=== PATIENT | female | born 1970 | race Caucasian/White ===

== ENCOUNTER → 2017-10-23 | Outpatient (CLI) | payer MEDICAID ==
--- NOTE | 2017-10-23 11:44 | MR ---
EXAMINATION TYPE: MR iac wo/w con DATE OF EXAM: 10/23/2017 11:26 AM COMPARISON: NONE HISTORY: Hearing loss TECHNIQUE: Multiplanar and multispin-echo imaging of the brain was performed both before and after the administr ation of contrast. High-resolution images are obtained of the internal auditory canals performed uti lizing 7 mL intravenous Gadavist contrast. The ventricles, basal cisterns and sulci overlying the cerebral convexities are within normal limits. There is no evidence for midline shift or mass effect. Acute intracranial hemorrhage or extra-axial collection is not evident. There are no abnormal areas of increased or decreased signal intensity within the brain parenchyma. High-resolution imaging of the internal auditory canals fails demonstrate evidence for an enhancing a coustic schwannoma or cerebellopontine cistern angle mass. Following contrast administration, there is no evidence for pathologic enhancement or enhancing mass. The mastoid air cells are well-aerated. Small mucous retention cyst right maxillary sinus. IMPRESSION: 1. No evidence of acoustic schwannoma or cerebellopontine angle mass.
== END | disposition home or self-care (01) ==
LOC: RADMRIMAIN 10:41
PROVIDERS: ATTEND Otolaryngology
DX: R42 Dizziness and giddiness (principal); H93.12 Tinnitus, left ear; H91.92 Unspecified hearing loss, left ear; H93.3X9 Disorders of unspecified acoustic nerve
CPT/HCPCS: 70553; A9581

== ENCOUNTER 2018-12-18 14:07 | Emergency (ER) | payer MEDICAID ==
[2018-12-18 14:32] VITALS: RESP 18
[2018-12-18] MEDS ORDERED: APIXABAN 5 MG TAB PO STA (15:12)
--- NOTE | 2018-12-18 15:16 | ED ---
Recheck HPI - General Chief Complaint: Recheck/Abnormal Lab/Rx Stated Complaint: DVT Time Seen by Provider: 12/18/18 14:33 Source: patient, RN notes reviewed Mode of arrival: ambulatory Limitations: no limitations - History of Present Illness Initial Comments: 48-year-old female presents emergency Department with chief complaint of right leg swelling and discomfort. Patient had some discomfort over the last week in which she felt was related to riding her bike. Patient states she does not show [employer] horse. Patient that she noticed increased swelling to her leg. It did improve with elevation though she had ultrasound which was positive for DVT. She denies chest pain, shortness breath, palpitations, dizziness. She denies any injury no long distance traveling. She states that she has no other complaints at this time. - Related Data Home Medications Medication Instructions Recorded Confirmed Azelastine HCl [Astepro] 1 spray EA NOSTRIL DAILY 12/18/18 12/18/18 acetaZOLAMIDE [Diamox Sequels] 500 mg PO BID 12/18/18 12/18/18 predniSONE 20 mg PO DIRECTED 12/18/18 12/18/18 Previous Rx's Medication Instructions Recorded Apixaban [Eliquis] 0 mg PO DIRECTED #74 tablet 12/18/18 Allergies Allergy/AdvReac Type Severity Reaction Status Date / Time grass pollen-perennial rye, Allergy Intermediate Unknown Verified 12/18/18 14:49 standar tape AdvReac Rash/Hives Uncoded 08/04/15 09:53 Review of Systems ROS Statement: Those systems with pertinent positive or pertinent negative responses have been documented in the HPI. ROS Other: All systems not noted in ROS Statement are negative. Past Medical History Past Medical History: Atrial Flutter, GERD/Reflux Additional Past Medical History / Comment(s): PAST HX OF ATRIAL FLUTTER, CARDIAC TESTING NEGATIVE, HAS NOT HAD IN MONTHS, ocular cysts bilaterally, Meniers disease History of Any Multi-Drug Resistant Organisms: None Reported Past Surgical History: Bariatric Surgery Additional Past Surgical History / Comment(s): EXPLORATORY LAPAROSCOPIC ABDOMINAL SX, sleeve gastrectomy 2014 Past Anesthesia/Blood Transfusion Reactions: Motion Sickness, Postoperative Nausea & Vomiting (PONV) Additional Past Anesthesia/Blood Transfusion Reaction / Comment(s): STATES SOME NAUSEA Past Psychological History: No Psychological Hx Reported Smoking Status: Never smoker Past Alcohol Use History: None Reported Past Drug Use History: None Reported - Past Family History Father Family Medical History: Cancer, Diabetes Mellitus Additional Family Medical History / Comment(s): SKIN CA General Exam Limitations: no limitations General appearance: alert, in no apparent distress Head exam: Present: atraumatic, normocephalic, normal inspection Neck exam: Present: normal inspection, full ROM. Absent: tenderness, meningismus, lymphadenopathy Respiratory exam: Present: normal lung sounds bilaterally. Absent: respiratory distress, wheezes, rales, rhonchi, stridor Cardiovascular Exam: Present: regular rate, normal rhythm, normal heart sounds. Absent: systolic murmur, diastolic murmur, rubs, gallop, clicks Extremities exam: Present: other (Moderate leg swelling, no tenderness to distal portion of there is mild tenderness the popliteal region) Neurological exam: Present: alert, oriented X3, CN II-XII intact, reflexes normal. Absent: motor sensory deficit Skin exam: Present: warm, dry, intact, normal color. Absent: rash Course Vital Signs 12/18/18 14:27 Temperature 99.2 F Pulse Rate 81 Respiratory 18 Rate Blood Pressure 116/77 O2 Sat by Pulse 100 Oximetry Medical Decision Making - Medical Decision Making 48-year-old female presented for right leg DVT. Patient was started on Eliquis she has no chest pain or shortness breath is no concern for PE at this time vitals are stable she has equal pulses. Patient will follow palpation for further workup patient was given prescription for Eliquis for one month. Disposition Clinical Impression: Right leg DVT Disposition: HOME SELF-CARE Condition: Stable Instructions (If sedation given, give patient instructions): Deep Vein Thrombosis (ED) Additional Instructions: Please return to the Emergency Department if symptoms worsen or any other concerns. Prescriptions: Apixaban [Eliquis] 0 mg PO DIRECTED #74 tablet Is patient prescribed a controlled substance at d/c from ED?: No Referrals: Ming Valenzuela MD [Primary Care Provider] - 1-2 days Time of Disposition: 15:16
[2018-12-18 15:46] VITALS: BP 109/57; PULSE 86; TEMP 98
== END 2018-12-18 15:46 | disposition home or self-care (01) ==
LOC: EEVIPCON 14:07 → EC 14:07
DX: I82.401 Acute embolism and thrombosis of unspecified deep veins of right lower extremity (principal); K21.9 Gastro-esophageal reflux disease without esophagitis; Z79.52 Long term (current) use of systemic steroids; Z79.899 Other long term (current) drug therapy; Z91.048 Other nonmedicinal substance allergy status; Z98.84 Bariatric surgery status
CPT/HCPCS: 99283

== ENCOUNTER → 2018-12-18 | Outpatient (CLI) | payer MEDICAID ==
[2018-12-18 13:11] LABS: Anisocytosis Slight; Basophils % (A) 0 %; Eosinophils % (A) 0 %; HCT 34.8 % (34.0-46.0); Hypochromasia Marked; Lymphocytes % (A) 9 %; MCH 20.9 pg (25.0-35.0); MCHC 28.7 g/dL (31.0-37.0); MCV 72.7 fL (80.0-100.0); Mean Platelet Volume 7.1; Microcytosis Moderate; Monocytes # (A) 0.5 k/uL (0-1.0); Monocytes % (A) 5 %; Neutrophils # (A) 9.4 k/uL (1.3-7.7); Neutrophils % (A) 85 %; Platelet Count 280 k/uL (150-450); Poikilocytosis Slight; RBC 4.78 m/uL (3.80-5.40); RDW 17.8 % (11.5-15.5); WBC 11.1 k/uL (3.8-10.6)
[2018-12-18 13:24] LABS: INR 0.9 (<1.2); Prothrombin Time 9.7 sec (9.0-12.0)
[2018-12-18 13:29] LABS: ALT 17 U/L (9-52); AST 21 U/L (14-36); African American GFR (CKD) >90 (>60 ml/min/1.73 sqM); Alkaline Phosphatase 61 U/L (38-126); Anion Gap 9 mmol/L; Blood Urea Nitrogen 12 mg/dL (7-17); Calcium 9.3 mg/dL (8.4-10.2); Carbon Dioxide 21 mmol/L (22-30); Chloride 110 mmol/L (98-107); Glucose 103 mg/dL (74-99); Non-African American GFR(CKD) >90 (>60 ml/min/1.73 sqM); Potassium 4.1 mmol/L (3.5-5.1); Sodium 140 mmol/L (137-145); Total Bilirubin 0.5 mg/dL (0.2-1.3); Total Protein 6.8 g/dL (6.3-8.2)
[2018-12-18 14:19] LABS: Amorphous Sediment,Urine Rare /hpf; Appearance,Urine Cloudy (Clear); Bilirubin,Urine Negative (Negative); Blood,Urine Negative (Negative); Color,Urine Yellow; Glucose,Urine (UA) Negative (Negative); Ketones,Urine Trace (Negative); Leukocyte Esterase,Urine Small (Negative); Mucus,Urine Rare /hpf; Nitrite,Urine Negative (Negative); Protein,Urine Negative (Negative); RBC,Urine 3 /hpf (0-5); Specific Gravity,Urine 1.012 (1.001-1.035); Squamous Epithelial Cell,Urine 5 /hpf (0-4); Urobilinogen,Urine <2.0 mg/dL (<2.0); WBC,Urine 3 /hpf (0-5)
--- NOTE | 2018-12-18 14:23 | US ---
EXAMINATION TYPE: US venous doppler duplex LE DATE OF EXAM: 12/18/2018 1:41 PM COMPARISON: NONE CLINICAL HISTORY: R60.0 Edema. Pain in right calf SIDE PERFORMED: Bilateral TECHNIQUE: The lower extremity deep venous system is examined utilizing real time linear array sonog rajendra with graded compression, doppler sonography and color-flow sonography. VESSELS IMAGED: External Iliac Vein (EIV) Common Femoral Vein Deep Femoral Vein Greater Saphenous Vein * Femoral Vein Popliteal Vein Small Saphenous Vein * Proximal Calf Veins (* superficial vessels) Right Leg: Positive for DVT in the right popliteal vein to the right proximal calf vein Left Leg: Negative for DVT IMPRESSION: 1. Right lower extremity ultrasound positive for deep venous thrombosis extending from the popliteal vein into the right calf vein A Red level critical message alert has been initiated for Ming Valenzuela MD via the [facility] Critical Results System on 12/18/2018 2:20 PM. This message alert has been sent to Ming Valenzuela MD via the preferences provided by the clinician for the receipt of Radiology Critical Findings. Databraid age ID [id number].
== END | disposition home or self-care (01) ==
LOC: RADUSWWP 12:23
PROVIDERS: ATTEND Family Medicine
DX: I82.431 Acute embolism and thrombosis of right popliteal vein (principal); I82.4Z1 Acute embolism and thrombosis of unspecified deep veins of right distal lower extremity
CPT/HCPCS: 80053; 81001; 85025; 85610; 93970

== ENCOUNTER → 2019-01-17 | Outpatient (CLI) | payer MEDICAID ==
[2019-01-17 13:05] LABS: Anisocytosis Moderate; Basophils % (A) 1 %; Eosinophils # (A) 0.1 k/uL (0-0.7); Eosinophils % (A) 1 %; HCT 38.1 % (34.0-46.0); HGB 11.2 gm/dL (11.4-16.0); Hypochromasia Marked; Lymphocytes # (A) 1.6 k/uL (1.0-4.8); Lymphocytes % (A) 25 %; MCH 22.1 pg (25.0-35.0); MCHC 29.5 g/dL (31.0-37.0); MCV 75.1 fL (80.0-100.0); Mean Platelet Volume 8.9; Microcytosis Moderate; Monocytes # (A) 0.3 k/uL (0-1.0); Monocytes % (A) 4 %; Neutrophils # (A) 4.5 k/uL (1.3-7.7); Neutrophils % (A) 68 %; Platelet Count 314 k/uL (150-450); RBC 5.07 m/uL (3.80-5.40); RDW 21.2 % (11.5-15.5); WBC 6.6 k/uL (3.8-10.6)
[2019-01-17 13:40] LABS: INR 0.9 (<1.2); Partial Thromboplastin Time 23.7 sec (22.0-30.0); Prothrombin Time 10.1 sec (9.0-12.0)
== END | disposition home or self-care (01) ==
LOC: LABWHC1 11:52
PROVIDERS: ATTEND Nurse Practitioner Women's Health
DX: I82.401 Acute embolism and thrombosis of unspecified deep veins of right lower extremity (principal)
CPT/HCPCS: 36415; 81241; 84597; 85025; 85384; 85610; 85730

== ENCOUNTER → 2019-09-05 | Outpatient (CLI) | payer MEDICAID ==
--- NOTE | 2019-09-05 16:42 | US ---
EXAMINATION TYPE: US venous doppler duplex LE RT DATE OF EXAM: 09/05/2019 4:11 PM COMPARISON: . This exam 12/18/2018 CLINICAL HISTORY: R22.41 swelling R lower limb, I82.41 Hx of DVT. SIDE PERFORMED: Right TECHNIQUE: The lower extremity deep venous system is examined utilizing real time linear array sonog rajendra with graded compression, doppler sonography and color-flow sonography. VESSELS IMAGED: External Iliac Vein (EIV) Common Femoral Vein Deep Femoral Vein Greater Saphenous Vein * Femoral Vein Popliteal Vein Small Saphenous Vein * Proximal Calf Veins (* superficial vessels) Right Leg: Chronic changes of wall echoes in mid and distal popliteal vein, with blood flow. No acut e DVT is suspected. IMPRESSION: Findings in the popliteal vein and likely the sequela of prior DVT rather than represent acute DVT.
== END | disposition home or self-care (01) ==
LOC: RADUSWWP 15:50
PROVIDERS: ATTEND Nurse Practitioner Women's Health
DX: R93.89 Abnormal findings on diagnostic imaging of other specified body structures (principal)

== ENCOUNTER → 2020-11-19 | Outpatient (CLI) | payer MEDICAID ==
[2020-11-19 12:10] LABS: Basophils # (A) 0.01 X 10*3/uL (0.00-0.10); Basophils % (A) 0.1 %; Eosinophils # (A) 0 X 10*3/uL (0.04-0.35); Eosinophils % (A) 0 %; HCT 29.6 % (37.2-46.3); HGB 8.7 g/dL (12.0-15.0); Lymphocytes # (A) 2.12 X 10*3/uL (0.90-5.00); Lymphocytes % (A) 25.3 %; MCH 19.8 pg (27.0-32.0); MCHC 29.4 g/dL (32.0-37.0); MCV 67.3 fL (80.0-97.0); Mean Platelet Volume 10.9 fL (9.5-12.2); Microcytosis (M) 2+; Monocytes # (A) 0.51 X 10*3/uL (0.20-1.00); Monocytes % (A) 6.1 %; Neutrophils # (A) 5.72 X 10*3/uL (1.80-7.70); Neutrophils % (A) 68.1 %; Platelet Count 341 X 10*3/uL (140-440); RDW 18.8 % (11.5-14.5); WBC 8.39 X 10*3/uL (4.50-10.00)
[2020-11-19 19:14] LABS: African American GFR (CKD) 117.1 (60.0-200.0); Albumin 3.8 g/dL (3.80-4.90); Albumin/Globulin Ratio 1.81 (1.60-3.17); Anion Gap 6.9 mmol/L (4.00-12.00); BUN/Creat Ratio 24.29 Ratio (12.00-20.00); Calcium 9.2 mg/dL (8.7-10.3); Carbon Dioxide 29.1 mmol/L (21.6-31.8); Chol/HDL Ratio 2.53; Globulin 2.1 g/dL (1.6-3.3); LDL Cholesterol,Calculated 90.4 mg/dL (0.0-131.0); Potassium 4.4 mmol/L (3.5-5.5); Total Bilirubin 0.4 mg/dL (0.3-1.2); Total Protein 5.9 g/dL (6.2-8.2); VLDL Calculation 13.6 mg/dL (5.00-40.00)
== END | disposition home or self-care (01) ==
LOC: LABWHC1 07:11
PROVIDERS: ATTEND Nurse Practitioner Women's Health
DX: Z00.00 Encounter for general adult medical examination without abnormal findings (principal); Z79.899 Other long term (current) drug therapy; E55.9 Vitamin D deficiency, unspecified; H81.09 Meniere's disease, unspecified ear
CPT/HCPCS: 36415; 80053; 80061; 82306; 83735; 84443; 85025

== ENCOUNTER → 2020-12-13 | Outpatient (CLI) | payer MEDICAID ==
--- NOTE | 2020-12-14 12:01 | MM ---
Reason for exam: screening (asymptomatic). Last mammogram was performed 5 years and 9 months ago. History: Patient is nulliparous. Physical Findings: A clinical breast exam by your physician is recommended on an annual basis and results should be correlated with mammographic findings. MG 3D Screening Mammo W/Cad Bilateral CC and MLO view(s) were taken. Prior study comparison: March 08, 2015, bilateral MG screening mammo w CAD. Finding: There are typically benign round, regional and scattered calcifications in both breasts, greater in the left breast. There is a chronic nodularity in the right axilla. Asymmetric breast tissue right upper outer quadrant, stable. There is no discrete abnormality. ASSESSMENT: Benign, BI-RAD 2 RECOMMENDATION: Routine screening mammogram of both breasts in 1 year.
== END | disposition home or self-care (01) ==
LOC: RADMAMWWP 08:57
PROVIDERS: ATTEND Obstetrics & Gynecology
DX: Z12.31 Encounter for screening mammogram for malignant neoplasm of breast (principal)
CPT/HCPCS: 77063; 77067

== ENCOUNTER → 2021-01-17 | Outpatient (CLI) | payer MEDICAID ==
--- NOTE | 2021-01-18 07:49 | US ---
EXAMINATION TYPE: US pelvic complete DATE OF EXAM: 01/17/2021 COMPARISON: 01/12/2015 ultrasound CLINICAL HISTORY: N92.1 Metrorrhagia. TECHNIQUE: Transabdominal (TA Date of LMP: 12-31-20 EXAM MEASUREMENTS: Uterus: 7.7 x 4.5 x 5.9 cm Endometrial Stripe: 0.7 cm Right Ovary: 3.1 x 1.4 x 1.9 cm Left Ovary: 2.7 x 1.6 x 1.9 cm 1. Uterus: Retroverted wnl 2. Endometrium: wnl 3. Right Ovary: wnl 4. Left Ovary: wnl 5. Bilateral Adnexa: wnl 6. Posterior cul-de-sac: wnl Urinary bladder is sonolucent. Posterior wall is normal. IMPRESSION: 1. Normal pelvic ultrasound
== END | disposition home or self-care (01) ==
LOC: RADUSWWP 16:25
PROVIDERS: ATTEND Obstetrics & Gynecology
DX: N92.1 Excessive and frequent menstruation with irregular cycle (principal)
CPT/HCPCS: 76856

== ENCOUNTER → 2021-04-28 | Outpatient (CLI) | payer MEDICAID, OTHER | END | disposition home or self-care (01) | LOC: LABWHC1 08:52 | PROVIDERS: ATTEND Emergency Medicine | DX: U07.1 COVID-19 (principal) | CPT/HCPCS: 87635 ==

== ENCOUNTER → 2021-05-28 | Outpatient (CLI) | payer MEDICAID ==
[2021-05-28 19:06] LABS: % Iron Saturation 3.48 (12.00-45.00); ALT 21 U/L (8-44); AST 24 U/L (13-35); African American GFR (CKD) 109.1 (60.0-200.0); Albumin/Globulin Ratio 1.51 (1.60-3.17); Alkaline Phosphatase 58 U/L (41-126); BUN/Creat Ratio 17.92 Ratio (12.00-20.00); Blood Urea Nitrogen 13.3 mg/dL (9.0-27.0); Calcium 9.2 mg/dL (8.7-10.3); Carbon Dioxide 21.4 mmol/L (20.0-27.5); Chloride 102 mmol/L (96-109); Chol/HDL Ratio 3.01 Ratio; Ferritin 4.5 ng/mL (10.0-291.0); Globulin 2.7 g/dL (1.6-3.3); Glucose 85 mg/dL (70-110); Iron 19 ug/dL (50-170); LDL Cholesterol,Calculated 110.6 mg/dL (0.0-131.0); Non-African American GFR(CKD) 94.2 (60.0-200.0); Potassium 3.8 mmol/L (3.5-5.5); Sodium 139 mmol/L (135-145); Total Iron Binding Capacity 549 ug/dL (228-460); Total Protein 6.7 g/dL (6.2-8.2); VLDL Calculation 12.26 mg/dL (5.00-40.00)
[2021-05-28 20:04] LABS: Basophils # (A) 0.07 X 10*3/uL (0.00-0.10); Basophils % (A) 1.3 %; Eosinophils # (A) 0.09 X 10*3/uL (0.04-0.35); Eosinophils % (A) 1.7 %; HCT 30.8 % (37.2-46.3); HGB 8.5 g/dL (12.0-15.0); Lymphocytes # (A) 1.66 X 10*3/uL (0.90-5.00); Lymphocytes % (A) 30.5 %; MCH 18.1 pg (27.0-32.0); MCHC 27.6 g/dL (32.0-37.0); MCV 65.5 fL (80.0-97.0); Mean Platelet Volume 10.9 fL (9.5-12.2); Monocytes # (A) 0.47 X 10*3/uL (0.20-1.00); Monocytes % (A) 8.6 %; Neutrophils # (A) 3.14 X 10*3/uL (1.80-7.70); Neutrophils % (A) 57.7 %; Platelet Count 376 X 10*3/uL (140-440); RDW 20.4 % (11.5-14.5); WBC 5.44 X 10*3/uL (4.50-10.00)
== END | disposition home or self-care (01) ==
LOC: LABWHC1 09:24
PROVIDERS: ATTEND Family Medicine
DX: Z00.00 Encounter for general adult medical examination without abnormal findings (principal); E66.3 Overweight; E55.9 Vitamin D deficiency, unspecified; D52.0 Dietary folate deficiency anemia; Z68.32 Body mass index [BMI] 32.0-32.9, adult
CPT/HCPCS: 36415; 80053; 80061; 82306; 82728; 83540; 83550; 84439; 84443; 85025

== ENCOUNTER → 2021-07-02 | Outpatient (CLI) | payer MEDICAID | END | disposition home or self-care (01) | LOC: LABPAT 09:08 | PROVIDERS: ATTEND Obstetrics & Gynecology | DX: Z01.812 Encounter for preprocedural laboratory examination (principal) | CPT/HCPCS: 93005 ==

== ENCOUNTER 2021-07-08 06:30 | Day surgery (SDC) | payer MEDICAID ==
[2021-07-04 12:37] VITALS: BMI 33.2
--- NOTE | 2021-07-07 12:54 | P.HPOB ---
History of Present Illness H&P Date: 07/07/21 Chief Complaint: Menorrhagia with irregular cycle, anemia, labial skin tag This is a 50 y.o. female, 0, who presents for dilatation and curettage with hysteroscopy and Novasure endometrial ablation along with excision of right vulvar skin tag due to menorrhagia with irregular menses and anemia. She has been getting iron infusions for her anemia. Her menses are occuring every 3-6 weeks and are lasting at least 6 days. She changes pads every 2-3 hours during heaviest times. Her pelvic ultrasound shows a uterus measuring 7.7 x 4.5 x 5.9 cm with endometrial thickness of 0.7 cm and normal ovaries. She has also had a skin tag on her right vulva/perineum for many years that catches on her underwear and would like it removed. Review of Systems Constitutional: Reports fatigue, Reports night sweats, Denies chills, Denies fever Eyes: denies blurred vision, denies pain Ears, nose, mouth and throat: Denies sore throat Cardiovascular: Denies chest pain, Denies shortness of breath Respiratory: Denies cough Gastrointestinal: Reports heartburn Genitourinary: Reports dysmenorrhea, Reports menorrhagia Menstruation: Reports cycle variable, Reports period heavy Musculoskeletal: Reports low back pain Neurological: Reports headaches Psychiatric: Denies anxiety, Denies depression Endocrine: Reports flushing Past Medical History Past Medical History: Atrial Flutter, Deep Vein Thrombosis (DVT) (11/2018, R. leg), GERD/Reflux Additional Past Medical History / Comment(s): PAST HX OF ATRIAL FLUTTER, CARDIAC TESTING NEGATIVE, HAS NOT HAD IN MONTHS, ocular cysts bilaterally, Meniers disease, IRREGULAR MENSES, ANEMIA-HAD IRON INFUSIONS 06/21/21 AND 06/24/21 History of Any Multi-Drug Resistant Organisms: None Reported Past Surgical History: Bariatric Surgery Additional Past Surgical History / Comment(s): EXPLORATORY LAPAROSCOPIC ABDOMINAL SX, sleeve gastrectomy 2014 Past Anesthesia/Blood Transfusion Reactions: Motion Sickness, Postoperative Nausea & Vomiting (PONV) Additional Past Anesthesia/Blood Transfusion Reaction / Comment(s): STATES SOME NAUSEA Past Psychological History: No Psychological Hx Reported Smoking Status: Never smoker Past Alcohol Use History: None Reported Past Drug Use History: None Reported - Past Family History Father Family Medical History: Cancer, Diabetes Mellitus Additional Family Medical History / Comment(s): SKIN CA Medications and Allergies Home Medications Medication Instructions Recorded Confirmed Type Aspirin [Adult Low Dose Aspirin EC] 81 mg PO DAILY 07/04/21 07/04/21 History Cholecalciferol [Vitamin D3 (125 250 mcg PO DAILY 07/04/21 07/04/21 History Mcg = 5000 Iu)] Fexofenadine HCl [Faby Allergy] 180 mg PO DAILY 07/04/21 07/08/21 History Furosemide [Lasix] 20 mg PO DAILY 07/04/21 07/08/21 History Multivitamins, Thera [Multivitamin 2 tab PO DAILY 07/04/21 07/04/21 History (formulary)] Omeprazole 20 mg PO HS 07/04/21 07/08/21 History Potassium Chloride [Klor-Con 10 ER] 10 meq PO DAILY 07/04/21 07/08/21 History Vitamin B Complex/Folic Acid 1 tab PO DAILY 07/04/21 07/04/21 History [Vitamin B Complex Tablet] Allergies Allergy/AdvReac Type Severity Reaction Status Date / Time grass pollen-perennial rye, Allergy Intermediate Unknown Verified 07/08/21 06:50 standar tape AdvReac Rash/Hives Uncoded 07/08/21 06:50 Exam Osteopathic Statement: *. No significant issues noted on an osteopathic structural exam other than those noted in the History and Physical/Consult. HEENT: within normal limits Heart: regular rate and rhythm Lungs: clear to auscultation bilaterally Abdomen: soft, non-tender Pelvic: uterus small, anteverted, non-tender, no adnexal masses or tenderness. Extremities: negative Radha's Assessment and Plan (1) Menorrhagia with irregular cycle Current Visit: No Status: Acute Code(s): N92.1 - EXCESSIVE AND FREQUENT MENSTRUATION WITH IRREGULAR CYCLE SNOMED Code(s): 099670795 (2) Skin tag of female perineum Current Visit: No Status: Acute Code(s): N90.89 - OTH NONINFLAMMATORY DISORDERS OF VULVA AND PERINEUM SNOMED Code(s): 307063176 Plan: Proceed with dilatation and curettage with hysteroscopy and Novasure endometrial ablation with excision of right labial skin tag. I have discussed the risks, benefits, and alternative therapies for the above- mentioned procedure and for both sedation/anesthesia as well as necessary blood products administration, if indicated, as they pertain to this patient. The patient has indicated her understanding and acceptance of the risks and procedures discussed.
[~2021-07-08 06:30] MED LIST: DEXAMETHASONE SOD PHOSPHATE 4 MG/ML 1 ML VIAL IV ONE; HYDROmorphone 0.5 MG/0.5 ML SYRINGE IVP PRN; LACTATED RINGERS 1,000 ML IV SCH; ONDANSETRON 4 MG/2 ML VIAL IVP ONE; Pre Op ABX Message 1 EACH MISC MISCELLANE ONE
[2021-07-08 06:57] VITALS: RESP 16
[2021-07-08] MEDS ORDERED: LACTATED RINGERS 1,000 ML IV ONE (07:10)
[2021-07-08] MEDS ORDERED: LIDOCAINE 1% (10MG/ML) FOR IV START INTRADERMA ONE (07:10)
[2021-07-08] MEDS ORDERED: ONDANSETRON 4 MG/2 ML VIAL IVP ONE (07:15)
[2021-07-08] MEDS ORDERED: DEXAMETHASONE SOD PHOSPHATE 4 MG/ML 1 ML VIAL IVP ONE (07:17)
[2021-07-08] MEDS ORDERED: KETOROLAC 15 MG/ML 1 ML VIAL ONE (07:31)
[2021-07-08] MEDS ORDERED: MIDAZOLAM 2 MG/2 ML VIAL ONE (07:31)
[2021-07-08] MEDS ORDERED: PROPOFOL 10 MG/ML 20 ML VIAL IV ONE (07:31)
[2021-07-08] MEDS ORDERED: fentaNYL (PF) 50 MCG/ML 2 ML AMP ONE (07:31)
[2021-07-08] MEDS ORDERED: LIDOCAINE 1% INJ 10MG/ML (20 ML MDV) ONE (07:31)
[2021-07-08 07:45] LABS: Anisocytosis Marked; HCT 45.5 % (34.0-46.0); HGB 14.2 gm/dL (11.4-16.0); Hypochromasia Marked; MCH 23.7 pg (25.0-35.0); MCHC 31.2 g/dL (31.0-37.0); MCV 75.9 fL (80.0-100.0); Mean Platelet Volume 8.4; Microcytosis Marked; Platelet Count 273 k/uL (150-450); RBC 5.99 m/uL (3.80-5.40); WBC 4.2 k/uL (3.8-10.6)
[2021-07-08 07:47] LABS: RDW 29.2 % (11.5-15.5)
--- NOTE | 2021-07-08 08:13 | P.OP ---
Date of Procedure: 07/08/21 Preoperative Diagnosis: Menorrhagia with irregular cycle Vulvar skin tag Postoperative Diagnosis: Same Procedure(s) Performed: Dilation and curettage with hysteroscopy and NovaSure endometrial ablation Excision of right vulvar skin tag Anesthesia: other (LMA general) Surgeon: Kelsie Salvador Estimated Blood Loss (ml): 5 Pathology: other (Endometrial curettings, Right vulvar skin tag) Condition: stable Disposition: same day Indications for Procedure: This is a 50 y.o. female, 0, who presents for dilatation and curettage with hysteroscopy and Novasure endometrial ablation along with excision of right vulvar skin tag due to menorrhagia with irregular menses and anemia. She has been getting iron infusions for her anemia. Her menses are occuring every 3-6 weeks and are lasting at least 6 days. She changes pads every 2-3 hours during heaviest times. Her pelvic ultrasound shows a uterus measuring 7.7 x 4.5 x 5.9 cm with endometrial thickness of 0.7 cm and normal ovaries. She has also had a skin tag on her right vulva/perineum for many years that catches on her u nderwear and would like it removed. Operative Findings: Uterus is retroverted with no adnexal masses palpated. Upon hysteroscopy, a dyssynchronous endometrial pattern is noted with some breakdown of tissue. Neither tubal ostia is completely visualized. A minimal to moderate amount of curettings are obtained. On the right lower vulva is a flattened approximately half a centimeter raised flesh-colored skin tag. Description of Procedure: The patient is taken to the operating room. She is placed in the dorsal lithotomy position after general anesthesia was given. She is prepped and draped in the normal sterile fashion. Bladder is drained with a catheter and then removed. Pelvic exam is performed under anesthesia. Uterus is found to be retroverted with no adnexal masses. She is placed in slight Trendelenburg position. A right angle retractor is used to visualize the cervix. The anterior lip of the cervix is grasped with an Allis clamp. Cervix is sounded to 3 cm. Uterus is sounded to 8 cm. Cervix is gently dilated with Choudhary dilators until a hysteroscope could be passed. Hysteroscopy is performed using normal saline. The above noted findings are noted. Next a polyp forceps is introduced. A minimal amount of tissue was obtained. Next medium-sized size sharp curette was placed. A moderate amount of endometrial curettings were obtained. Next NovaSure array was inserted into the endometrial cavity. Length was set at 5 cm and width was determined to be 3.5 cm. Next cavity assessment was completed and passed on the second try. The Allis clamp was removed and replaced with a single-tooth tenaculum. After this the cavity assessment passed. Next NovaSure array was fired at 96 W for 67 seconds. Next the array was removed, inspected and then discarded. Next the hysteroscope was reinserted. Uniform charring was noted. Pictures were taken. Hysteroscope was removed. Single-tooth tenaculum was removed from the anterior lip of the cervix. Minimal bleeding was noted. All other instruments removed from the vagina. Attention is turned to the right lower vulvar skin tag. This area is excised with a 15 blade. The skin is closed with 3-0 Vicryl suture in a subcuticular fashion. One interrupted stitch was also placed for hemostasis. Sponge counts were correct. Patient is taken to recovery room in stable condition.
[2021-07-08 08:26] VITALS: TEMP 96.8
[2021-07-08 09:14] VITALS: BP 124/73; PULSE 74
== END 2021-07-08 09:40 | disposition home or self-care (01) ==
LOC: OR 06:30
PROVIDERS: ATTEND Obstetrics & Gynecology
DX: N92.0 Excessive and frequent menstruation with regular cycle (principal); N90.89 Other specified noninflammatory disorders of vulva and perineum; I48.92 Unspecified atrial flutter; Z86.718 Personal history of other venous thrombosis and embolism
CPT/HCPCS: 58563; 11200; 81025; 88305; 85027; J2250; J1100; J2405; J2001; J3010; J1885; J2704

== ENCOUNTER → 2023-05-24 | Outpatient (CLI) | payer MEDICAID ==
[2023-05-24 11:18] LABS: Basophils # (A) 0.06 X 10*3/uL (0.00-0.10); Basophils % (A) 1.2 %; Eosinophils # (A) 0.09 X 10*3/uL (0.04-0.35); Eosinophils % (A) 1.8 %; HCT 45.9 % (37.2-46.3); HGB 15.1 g/dL (12.0-15.0); Lymphocytes # (A) 1.62 X 10*3/uL (0.90-5.00); Lymphocytes % (A) 32.1 %; MCH 28.9 pg (27.0-32.0); MCHC 32.9 g/dL (32.0-37.0); MCV 87.9 FL (80.0-97.0); Mean Platelet Volume 10.8 FL (9.5-12.2); Monocytes # (A) 0.42 X 10*3/uL (0.20-1.00); Monocytes % (A) 8.3 %; NRBC Per 100 WBC 0 X 10*3/uL (0.00-0.01); Neutrophils # (A) 2.85 X 10*3/uL (1.80-7.70); Neutrophils % (A) 56.4 %; Platelet Count 272 X 10*3/uL (140-440); RBC 5.22 X 10*6/uL (4.10-5.20); RDW 13.4 % (11.5-14.5); WBC 5.05 X 10*3/uL (4.50-10.00)
[2023-05-24 12:08] LABS: ALT 33 U/L (8-44); AST 30 U/L (13-35); Albumin 4.2 g/dL (3.8-4.9); Albumin/Globulin Ratio 1.75 Ratio (1.60-3.17); Alkaline Phosphatase 67 U/L (41-126); BUN/Creat Ratio 17.88 Ratio (12.00-20.00); Blood Urea Nitrogen 14.3 mg/dL (9.0-27.0); Calcium 10.1 mg/dL (8.7-10.3); Carbon Dioxide 27.6 mmol/L (21.6-31.8); Chloride 104 mmol/L (96-109); Chol/HDL Ratio 2.95 Ratio; Globulin 2.4 g/dL (1.6-3.3); Glucose 90 mg/dL (70-110); LDL Cholesterol,Calculated 124.9 mg/dL (0.0-131.0); Potassium 4.6 mmol/L (3.5-5.5); Sodium 142 mmol/L (135-145); T4, Free (Free Thyroxine) 1.38 ng/dL (0.80-1.80); Total Bilirubin 0.6 mg/dL (0.3-1.2); Total Protein 6.6 g/dL (6.2-8.2); VLDL Calculation 16.46 mg/dL (5.00-40.00)
--- NOTE | 2023-05-24 20:19 | MM ---
Reason for Exam: Screening (asymptomatic). Last mammogram was performed 2 year(s) and 5 month(s) ago. Patient History: Menarche at age 10. Patient has no children. Postmenopausal. Risk Values: Jessika 5 year model risk: 1.3%. NCI Lifetime model risk: 10.5%. Prior Study Comparison: 03/08/2015 Bilateral Screening Mammogram, [facility]. 03/11/2015 Right Diagnostic Mammogram, [facility]. 12/13/2020 Bilateral Screening Mammogram, [facility]. Tissue Density: There are scattered fibroglandular densities. Findings: Analyzed By CAD. Chronic nodularity on the right. There is no suspicious group of microcalcifications or new suspicious mass in either breast. Overall Assessment: Benign, BI-RAD 2 Management: Screening Mammogram of both breasts in 1 year. . Patient should continue monthly self-breast exams. A clinical breast exam by your physician is recommended on an annual basis. This exam should not preclude additional follow-up of suspicious palpable abnormalities. Note on Jessika scores and lifetime risk: 1. A Jessika score greater than 3% is considered moderate risk. If this is the case, consider specialist referral to assess eligibility for a risk reducing agent. 2. If overall lifetime risk for the development of breast cancer is 20% or higher, the patient may qualify for future screening with alternating mammogram and breast MRI. Electronically signed and approved by: Roland Lindsey M.D. Radiologist
== END | disposition home or self-care (01) ==
LOC: RADMAMWWP 06:56
PROVIDERS: ATTEND Family Medicine
DX: Z12.31 Encounter for screening mammogram for malignant neoplasm of breast (principal); E55.9 Vitamin D deficiency, unspecified; D50.8 Other iron deficiency anemias; Z78.0 Asymptomatic menopausal state
CPT/HCPCS: 77063; 77067; 80053; 80061; 82306; 82607; 84439; 84443; 85025